=== PATIENT | female | born 1985 | race Two or more races ===

== ENCOUNTER 2017-07-25 16:27 | Emergency (ER) | payer SELFPAY, OTHER ==
[2017-07-25 16:51] LABS: URINE HCG POC HCG POSITIVE (Negative)
[2017-07-25 17:04] LABS: ADD MAN DIFF? NO
[2017-07-25 17:06] LABS: BASO # 0.1 x10^3/uL (0.0-0.2); BASO % 1 % (0-3); EOS # 0.1 x10^3/uL (0.0-0.7); EOS % 1 % (0-3); HEMOGLOBIN 14.6 g/dL (12.0-15.5); LYMPH # 1.9 x10^3/uL (1.0-4.8); LYMPH % 26 % (24-48); MEAN CORPUSCULAR HEMOGLOBIN 30 pg (25-35); MEAN CORPUSCULAR HGB CONC 33 g/dL (31-37); MEAN CORPUSCULAR VOLUME 89 fL (79-100); MONO # 0.6 x10^3/uL (0.0-1.1); MONO % 9 % (0-9); NEUT # 4.7 x10^3uL (1.8-7.7); NEUT % 64 % (31-73); PLATELET COUNT 248 x10^3/uL (140-400); RED BLOOD COUNT 4.93 x10^6/uL (3.50-5.40); RED CELL DISTRIBUTION WIDTH 13.5 % (11.5-14.5); WHITE BLOOD COUNT 7.4 x10^3/uL (4.0-11.0)
[2017-07-25 17:08] LABS: BILIRUBIN,URINE SMALL (NEG); CLARITY,URINE CLEAR; GLUCOSE,URINE NEGATIVE (NEG); NITRITE,URINE NEGATIVE (NEG); PH,URINE 5.5; PROTEIN,URINE NEGATIVE (NEG-TRACE)
[2017-07-25 17:13] LABS: COLOR,URINE DK YELLOW
[2017-07-25 17:16] LABS: BACTERIA,URINE FEW /HPF (0-FEW); HYALINE CASTS, URINE OCCASIONAL /HPF; RBC,URINE 0 /HPF (0-2); SQUAMOUS EPITHELIAL CELL,UR MANY /LPF
[2017-07-25 17:21] LABS: ETHANOL < 10 mg/dL (0-10)
[2017-07-25 17:26] LABS: ALBUMIN 3.7 g/dL (3.4-5.0); ALBUMIN/GLOBULIN RATIO 0.9 (1.0-1.7); ALK PHOS 69 U/L (46-116); ALT (SGPT) 46 U/L (14-59); ANION GAP 10 (6-14); AST (SGOT) 25 U/L (15-37); BLOOD UREA NITROGEN 7 mg/dL (7-20); BUN/CREATININE RATIO 9 (6-20); CALCIUM 8.9 mg/dL (8.5-10.1); CARBON DIOXIDE 27 mmol/L (21-32); CHLORIDE 103 mmol/L (98-107); CREATININE 0.8 mg/dL (0.6-1.0); GFR 83.1; GLUCOSE 93 mg/dL (70-99); LIPASE 79 U/L (73-393); SODIUM 140 mmol/L (136-145); TOTAL BILIRUBIN 0.9 mg/dL (0.2-1.0); TOTAL PROTEIN 7.8 g/dL (6.4-8.2)
[2017-07-25 17:27] LABS: POTASSIUM 2.9 mmol/L (3.5-5.1)
[2017-07-25] MEDS: IV NORMAL SALINE 1000ML BAG 1,000 ML IV (17:33)
[2017-07-25] MEDS: ONDANSETRON PF 4 MG/2 ML VIAL. IV (17:35)
[2017-07-25] MEDS: POTASSIUM CHLORIDE 20 MEQ TABLET.ER. PO (17:35)
[2017-07-25] MEDS: FAMOTIDINE 20 MG TABLET. PO (18:27)
== END 2017-07-25 20:27 | disposition home or self-care (01) ==
LOC: ER 16:27
DX: O21.9 Vomiting of pregnancy, unspecified (principal); E87.6 Hypokalemia; O99.011 Anemia complicating pregnancy, first trimester; Z3A.00 Weeks of gestation of pregnancy not specified
CPT/HCPCS: 36415; 80053; 81001; 81025; 83690; 83735; 84702; 85025; 87086; 96361; 96374; 99285-25; G0480; J2405; J7030

== ENCOUNTER 2017-08-03 10:38 | Emergency (ER) | payer SELFPAY ==
[2017-08-03 11:09] LABS: URINE HCG POC HCG POSITIVE (Negative)
[2017-08-03] MEDS ORDERED: 0.9 % SODIUM CHLORIDE 10 ML DISP.SYRIN. IV (11:45)
[2017-08-03 12:17] LABS: ADD MAN DIFF? NO
[2017-08-03 12:20] LABS: BASO % 1 % (0-3); EOS # 0.1 x10^3/uL (0.0-0.7); EOS % 1 % (0-3); HEMATOCRIT 40.8 % (36.0-47.0); HEMOGLOBIN 13.5 g/dL (12.0-15.5); LYMPH # 2.1 x10^3/uL (1.0-4.8); LYMPH % 29 % (24-48); MEAN CORPUSCULAR HEMOGLOBIN 30 pg (25-35); MEAN CORPUSCULAR HGB CONC 33 g/dL (31-37); MEAN CORPUSCULAR VOLUME 90 fL (79-100); MONO # 0.6 x10^3/uL (0.0-1.1); MONO % 9 % (0-9); NEUT # 4.6 x10^3uL (1.8-7.7); NEUT % 61 % (31-73); PLATELET COUNT 259 x10^3/uL (140-400); RED BLOOD COUNT 4.53 x10^6/uL (3.50-5.40); RED CELL DISTRIBUTION WIDTH 13.4 % (11.5-14.5); WHITE BLOOD COUNT 7.5 x10^3/uL (4.0-11.0)
[2017-08-03] MEDS: IV NORMAL SALINE 500ML BAG 500 ML IV (12:21)
[2017-08-03 12:30] LABS: ANION GAP 8 (6-14); BLOOD UREA NITROGEN 6 mg/dL (7-20); BUN/CREATININE RATIO 10 (6-20); CALCIUM 8.7 mg/dL (8.5-10.1); CARBON DIOXIDE 28 mmol/L (21-32); CHLORIDE 104 mmol/L (98-107); CREATININE 0.6 mg/dL (0.6-1.0); GFR 115.9; GLUCOSE 80 mg/dL (70-99); POTASSIUM 3.9 mmol/L (3.5-5.1); SODIUM 140 mmol/L (136-145)
[2017-08-03 12:36] LABS: ALBUMIN/GLOBULIN RATIO 0.8 (1.0-1.7); ALK PHOS 66 U/L (46-116); ALT (SGPT) 35 U/L (14-59); AST (SGOT) 18 U/L (15-37); TOTAL BILIRUBIN 0.3 mg/dL (0.2-1.0); TOTAL PROTEIN 6.8 g/dL (6.4-8.2)
[2017-08-04 19:16] LABS: CHLAMYDIA PROBE Negative (Negative); GC PROBE Negative (Negative)
== END 2017-08-03 13:45 | disposition home or self-care (01) ==
LOC: ER 10:38
DX: O20.0 Threatened abortion (principal); Z3A.10 10 weeks gestation of pregnancy; Z90.49 Acquired absence of other specified parts of digestive tract
CPT/HCPCS: 36415; 76801; 80053; 81025; 85025; 86900; 86901; 87491; 87591; 96360; 99285-25; J7040; Q0111

== ENCOUNTER 2017-11-29 14:17 | Emergency (ER) | payer OTHER | END 2017-11-29 14:48 | disposition home or self-care (01) | LOC: ER 14:48 | DX: O26.899 Other specified pregnancy related conditions, unspecified trimester (principal); M25.532 Pain in left wrist; G89.29 Other chronic pain; Z3A.00 Weeks of gestation of pregnancy not specified | CPT/HCPCS: 99281 ==

== ENCOUNTER 2018-02-27 12:39 | Emergency (ER) | payer OTHER ==
[~2018-02-27] VITALS: Ht 167.6 cm; Wt 115.7 kg
[~2018-02-27 12:39] MED LIST: ACET325T9 PO; ONDA4TAB10 PO; TRAM1TAB56 PO
[2018-02-27] MEDS ORDERED: fentaNYL PF VIAL 100 MCG/2 ML VIAL IV ONE ×2 (13:30→14:30)
[2018-02-27] MEDS ORDERED: LIDOCAINE 2%/EPI 1:100,000 20 ML VIAL. IJ ONE (13:45)
[2018-02-27] MEDS ORDERED: HYDR-971 PO (15:33)
[2018-02-27] MEDS ORDERED: HYDR30CR6 RC (15:33)
--- NOTE | 2018-02-27 15:35 | PHYS DOC ---
Past Medical History Past Medical History: Anemia, Anxiety, Depression, Other Additional Past Medical Histor: BLOOD TRANSFUSION Past Surgical History: Appendectomy, Cholecystectomy Alcohol Use: Rarely Drug Use: None Adult General Chief Complaint Chief Complaint: HEMORRHOIDS HPI HPI The patient is a 32-year-old female who is here with complaints of hemorrhoids. The patient delivered a baby 6 days ago. She states the hemorrhoid started 2 days ago. She is on a stool softener currently. She is in a large amount of pain and states that it is triggering her anxiety as well. She had pain medication at home but she is now currently out of her pain medication. Review of Systems Review of Systems Constitutional: Denies fever or chills [] Respiratory: Denies cough or shortness of breath [] Cardiovascular: No additional information not addressed in HPI [] GI: Denies abdominal pain, nausea, vomiting, bloody stools or diarrhea [] : See history of present illness Integument: Denies rash or skin lesions [] Neurologic: Denies headache, focal weakness or sensory changes [] Endocrine: Denies polyuria or polydipsia [] All other systems were reviewed and found to be within normal limits, except as documented in this note. Current Medications Current Medications Current Medications Medications (Trade) Dose Ordered Sig/Carolynn Start Time Stop Time Status Last Admin Dose Admin Fentanyl Citrate (Fentanyl 2ml Vial) 50 mcg 1X ONCE 02/27/18 14:30 02/27/18 14:31 DC 02/27/18 14:36 50 MCG Lidocaine/ Epinephrine (LIDOCAINE 2%-EPI 1:100,000 multi-dose) 20 ml 1X ONCE 02/27/18 13:45 02/27/18 13:46 DC 02/27/18 13:45 20 ML Lorazepam (Ativan) 1 mg PRN Q4HRS PRN 02/27/18 14:30 02/27/18 15:57 DC 02/27/18 14:36 1 MG Allergies Allergies Allergies Coded Allergies Type Severity Reaction Last Updated Verified No Known Drug Allergies 03/01/16 No Physical Exam Physical Exam Constitutional: Well developed, well nourished, no acute distress, non-toxic appearance. [] Cardiovascular:Heart rate regular rhythm, no murmur [] Lungs & Thorax: Bilateral breath sounds clear to auscultation [] Abdomen: Bowel sounds normal, soft, no tenderness, no masses, no pulsatile masses. [] Rectal: There is a large thrombosed hemorrhoid to the patient's external anus, that is folded into 3 segments Skin: Warm, dry, no erythema, no rash. [] Back: No tenderness, no CVA tenderness. [] Extremities: No tenderness, no cyanosis, no clubbing, ROM intact, no edema. [] Neurologic: Alert and oriented X 3, normal motor function, normal sensory function, no focal deficits noted. [] Psychologic: Affect normal, judgement normal, mood normal. [] Current Patient Data Vital Signs Vital Signs Date Time Temp Pulse Resp B/P (MAP) Pulse Ox O2 Delivery O2 Flow Rate FiO2 02/27/18 15:45 72 16 110/77 (88) 99 Room Air 02/27/18 12:48 98.2 98.2 EKG EKG [] Radiology/Procedures Radiology/Procedures The patient was given fentanyl and Ativan in the emergency department. She then was injected with Xylocaine. An incision was made by Dr. Selby and clots were removed from hemorrhoids. The patient tolerated the procedure well. Course & Med Decision Making Course & Med Decision Making Pertinent Labs and Imaging studies reviewed. (See chart for details) []The patient is to use the medications as prescribed. She is to follow-up with her primary care provider for a recheck in 2-3 days. She is in agreement with this plan. Dragon Disclaimer Dragon Disclaimer This electronic medical record was generated, in whole or in part, using a voice recognition dictation system. Departure Departure Impression: Primary Impression: Hemorrhoid thrombosis Disposition: HOME, SELF-CARE Condition: STABLE Referrals: NO PCP (PCP) Patient Instructions: Hemorrhoidectomy Additional Instructions: Take the medications as prescribed. Follow-up with your primary care provider in 3 days for recheck or return to the emergency department if worsening. Do not drive or operate heavy machinery while taking the pain medication. Scripts Hydrocortisone/Pramoxine (ANALPRAM HC 2.5% CREAM) 30 Gm Cream.appl 1 GANGA RC TID, #60 GM 3 Refills Prov: LISANDRARASHEED M [employer]ICATIONS LEAD 02/27/18 Hydrocodone/Apap 5-325 (NORCO 5-325 TABLET) 1 Each Tablet 1 TAB PO PRN Q6HRS PRN for PAIN, #20 TAB 0 Refills Prov: RIAINTRASHEED APRN 02/27/18 RASHEED FRY APRN Feb 27, 2018 15:35
[2018-02-27 15:45] VITALS: BP 110/77
== END 2018-02-27 15:57 | disposition home or self-care (01) ==
LOC: ER 12:39
DX: O87.2 Hemorrhoids in the puerperium (principal); Z90.89 Acquired absence of other organs; Z90.49 Acquired absence of other specified parts of digestive tract
CPT/HCPCS: 46320; 96374; 96375; 96376; 99284; J2060; J3010; J3490; 99285-25